=== PATIENT | male | born 1995 | race Caucasian/White ===

== ENCOUNTER 2025-05-20 11:12 | Emergency (ER) | payer OTHER, SELFPAY ==
--- NOTE | ~2025-05-20 | XR_ITS ---
CLINICAL HISTORY: pain 3 views lumbar spine Comparison: None provided Findings: Normal vertebral body alignment. No acute fractures or dislocation. Mild anterior wedging of L1 vertebral body. No significant degenerative change. IMPRESSION: 1. Mild anterior wedging of L1 vertebral body which is likely nonacute. Correlate clinically. This document has been electronically signed by: Shahla Kat MD on 05/20/2025 19:11:56
[2025-05-20 11:33] VITALS: BP 153/77; PULSE 81; RESP 20; TEMP 36.1; O2SAT 99; BMI 31.9
--- NOTE | 2025-05-20 11:34 | ED_ITS ---
HPI - General Adult General Chief complaint: Back Pain/Injury Stated complaint: Back pain Time Seen by Provider: 05/20/25 17:56 Source: patient, RN notes reviewed and old records reviewed Mode of arrival: ambulatory Limitations: no limitations History of Present Illness ED Provider: Martita SAMANIEGO narrative: 29 year old male with no significant past medical history presents for evaluation of lower back pain. the patient reports that he has chronic lower back pain that has intermittent. He reports that he works in the [employer] in his constantly lifting heavy items he reports about 2 years ago he started to notice numbness in his left leg while urinating this is not constant but rather intermittent. He reports this has been happening more frequently over last few months. This morning while urinating he noticed numbness in both legs which she thought was unusual he has no difficulty urinating and does not feel that he is retaining. He reports mild pain currently he denies any previous significant injury or recent injuries. He was seated for a long flight from [place] about 2 weeks ago. His pain does not radiate. He denies ever having had any imaging of his lumbar spine denies any fevers or chills, denies any history of IV drug abuse Related Data Previous Rx's ?Medication ?Instructions ?Recorded cyclobenzaprine 5 mg tablet 5 mg PO BEDTIME PRN muscle spasm 05/20/25 #20 tabs dexamethasone 4 mg tablet 4 mg PO BID #6 tabs 05/20/25 Allergies Allergy/AdvReac Type Severity Reaction Status Date / Time cefprozil Allergy Unknown Verified 05/20/25 11:38 Review of Systems 2 Constitutional: Constitutional: Denies body ache(s), Denies chills and Denies fever(s) Eyes: Eyes: Denies blurry vision ENT: Denies vertigo Cardiovascular: Cardiovascular: Denies chest pain Respiratory: Respiratory: Denies cough Gastrointestinal: Gastrointestinal: Denies abdominal pain Musculoskeletal: Musculoskeletal: Reports back pain, Denies arthralgias, Denies joint swelling, Denies limited range of motion, Reports numbness and Reports tingling Neurologic: Denies vertigo, Reports numbness, Reports tingling and Reports paresthesias Psychiatric: Psychiatric: Denies anxiety PMFSH Social History Social History Smoked in Last 30 Days: No Use of substances other than those prescribed or required for medical reasons: No Advance Directives: No Advance Directives Information Provided: No Do you have a plan to hurt others: No Plan Physical Exam ED Vital Signs: Vital Signs - 24 hr 05/20/25 11:33 05/20/25 18:55 Temperature 97.0 F 97.8 F Pulse Rate 81 66 Respiratory Rate 20 14 Blood Pressure 153/77 H 128/77 Pulse Oximetry 99 97 Oxygen Delivery Method Room Air Room Air BMI result Body Mass Index 31.9 Const General: healthy appearing, comfortable, no acute distress, alert and awake Nutritional Appearance: well nourished Orientation/consciousness: patient oriented x3 HENMT Head: Yes normocephalic and Yes atraumatic Eyes Eyelids: Yes eyelids normal Conjunctivae: conjunctivae normal Sclerae: sclerae normal Corneas: corneas normal Pupils: Equal, round and reactive pupils present EOM: EOMs intact bilaterally Neck Neck: Yes full ROM Resp Effort & Inspection: normal respiratory effort, able to speak in complete sentences and not labored Cardio Rate: regular rate Rhythm: regular rhythm GI Inspection: No distended Palpation (GI): Soft to palpation, not firm, nontender, no guarding and not rigid Back/Spine/Pelvis Other: no overlying skin changes to the back. mild tenderness to the lumbar paraspinous region. no step-offs or deformities Negative straight leg raise Skin General skin exam: elasticity normal Neuro General: patient oriented x3 Cranial nerves: Yes Equal, round and reactive pupils present and Yes Bilaterally intact EOM present Cognition (Neuro): normal cognition Gait exam (Neuro): Normal gait present Motor exam (neuro): 5/5 motor strength present throughout Deep tendon reflexes (DTR's): Right patellar reflex intensity grade: 2+ and Left patellar reflex intensity grade: 2+ Extrem Other: Moving all extremities well without any obvious deformities Course Course Course Narrative: This is a rapid medical exam performed by Erin Moralez NP: Additional HPI, ROS, PE not included below will be deferred to primary provider. Patient is a 29-year-old male presenting to the ED with complaint of low back pain. This am, when he was urinating, both legs went numb. States this only occurs with urination. Denies any prior back injury or surgery. Denies b/b incontinence. Denies saddle anesthesia. Denies fevers, hx of IVDU. Just returned from [place], had to keep getting up on the airplane due to back pain. States pain is usually to his left leg. Urinating more than normal. Plan: Labs, UA, imaging deferred to primary provider Medical Decision Making Medical Decision Making [facility] Narrative: 29-year-old male presents for evaluation of lower back pain. He reports some numbness to both legs only while urinating. He has no urinary retention or incontinence. Denies any shortness the lower extremities, his strength is 5/5 to all major muscle groups and equal. He has been infectious symptoms, no history of the drug abuse, I doubt diskitis or epidural abscess. The patient has a reassuring exam. He ambulates with a steady, even gait. I suspect he may have some disc herniation and radiculopathy but I have a low suspicion for cauda equina syndrome. He has no red flag signs on exam. Plan for lumbar x-ray as he has never had 1 in the past. He will likely require additional workup as an outpatient Differential Diagnosis Differential Diagnoses: The differential diagnosis associated with the presentation includes lumbar radiculopathy Disc herniation Chronic back pain Neuropathy Lab Data [facility] Lab Attestation statement: I reviewed the patient's lab results. no leukocytosis, anemia or thrombocytopenia. No electrolyte abnormalities. Inflammatory markers within normal limits 05/20/25 11:59 05/20/25 11:53 Labs: Lab Results 05/20/25 05/20/25 Range/Units 11:53 11:59 WBC 7.5 (4.8-10.8) X10*3/uL RBC 5.45 (4.60-5.80) X10*6/uL Hgb 17.4 (14.0-18.0) g/dl Hct 51.4 (42.0-52.0) % MCV 94.3 (80.0-98.0) fL MCH 31.9 (27.0-33.0) pg MCHC 33.9 (31.0-36.0) g/dl RDW 12.9 (11.0-16.0) % Plt Count 199 (160-400) X10*3/uL MPV 11.2 (9.4-12.4) fL Immature Gran % (Auto) 0.3 (0.0-0.4) % Neut % (Auto) 65.8 (45-73) % Lymph % (Auto) 22.6 (20-40) % [place] % (Auto) 10.1 (2-11) % Eos % (Auto) 0.8 (0-4) % Baso % (Auto) 0.4 (0-2) % Lymph # (Auto) 1.7 (1.2-4.9) X10*3/uL [place] # (Auto) 0.8 (0.1-1.2) X10*3/uL Eos # (Auto) 0.1 (0.0-0.4) X10*3/uL Baso # (Auto) 0.0 (0.0-0.2) X10*3/uL Abs Immat Gran (auto) 0.02 (0.00-0.03) X10*3/uL Absolute Neuts (auto) 4.9 (2.0-8.3) x10*3/uL Absolute Nucleated RBC 0.000 (0.0-0.012) X10*3/uL Nucleated RBC % (auto) 0.0 (0.0-0.2) /100WBC ESR 2 (0-15) MM/HR Sodium 141 (135-145) mmol/L Potassium 4.0 (3.3-5.1) mmol/L Chloride 105 (96-108) mmol/L Carbon Dioxide 28 (22-29) mmol/L Anion Gap 12 (12-20) BUN 9 (9-16) mg/dL Creatinine 0.87 (0.5-1.4) mg/dL Estim Creat Clear Calc 154.8 Estimated GFR > 60 Random Glucose 113 (60-115) mg/dL Calcium 11.0 H (8.4-10.2) mg/dL Total Bilirubin 0.6 (0.0-1.0) mg/dL AST 47 H (5-37) U/L ALT 97 H (0-40) U/L Alkaline Phosphatase 113 (39-117) U/L C-Reactive Protein 0.37 (< or = 0.50) mg/dL Total Protein 7.7 (6.5-8.0) g/dL Albumin 4.9 (3.5-5.0) g/dL Urine Color Yellow Urine Appearance Clear Urine pH 7.0 (5.0-9.0) Ur Specific [place] 1.020 (1.005-1.025) Urine Protein Negative (Neg-Trace) mg/dL Urine Glucose (UA) Negative (Negative) mg/dL Urine Ketones Negative (Negative) mg/dL Urine Blood Negative (Negative) Urine Nitrite Negative (Negative) Ur Leukocyte Esterase Negative (Negative) Independent Interpretation I performed an independent interpretation of an: Plain X-Ray Interpretation: mild straightening of the lumbar spine Radiology Impression Discussion of test interpretation with radiology: I have reviewed the radiologist's reading. Radiologist Impression: Findings: Normal vertebral body alignment. No acute fractures or dislocation. Mild anterior wedging of L1 vertebral body. No significant degenerative change. IMPRESSION: 1. Mild anterior wedging of L1 vertebral body which is likely nonacute. Correlate clinically. This document has been electronically signed by: Shahla Kat MD on 05/20/2025 19:11:56 Tests considered The following testing was considered but not selected: considered MR of the lumbar spine but ultimately felt that there was no indication as I have a low suspicion for emergent neurosurgical pathology. Prescription Management I considered prescription management with: Pain Medication Discharge Plan Discharge Clinical Impression: Lumbar radiculopathy Patient Disposition: Home, Self-Care Instructions: Lumbar Radiculopathy (ED) Additional Instructions: Your x-ray shows what appears to be a chronic compression fracture of L1 This is likely the cause of your pain and numbness. Take dexamethasone twice daily for the next 3 days. Take cyclobenzaprine as needed for muscle spasms. This may make you drowsy, do not drink alcohol or drive after taking it. In his best to use for bedtime You should avoid heavy lifting for the next 3 days. Follow up with her primary doctor. You may benefit from an outpatient MRI Prescriptions: New dexamethasone 4 mg tablet 4 mg PO BID Qty: 6 0RF cyclobenzaprine 5 mg tablet 5 mg PO BEDTIME PRN (Reason: muscle spasm) Qty: 20 0RF Referrals: [facility] [Provider Group, Physiatry] Referral Note: acute on chronic back pain Stand Alone Forms: Work/School Release Print Language: Armenian
[2025-05-20 12:05] LABS: MANUAL DIFF FLAG NO
[2025-05-20 12:11] LABS: Appearance Urine Clear; Glucose Urine UA Negative (Negative); Hematocrit 51.4 % (42.0-52.0); Hemoglobin 17.4 g/dl (14.0-18.0); Imm Gran Abs Auto 0.02 X10*3/uL (0.00-0.03); Imm Gran Pct Auto 0.3 % (0.0-0.4); Lymphocytes Absolute Auto 1.7 X10*3/uL (1.2-4.9); Mean Corpuscular HGB Conc 33.9 g/dl (31.0-36.0); Mean Corpuscular Hemoglobin 31.9 pg (27.0-33.0); Mean Corpuscular Volume 94.3 fL (80.0-98.0); NRBC Abs Auto 0.000 X10*3/uL (0.0-0.012); NRBC Pct Auto 0.0 /100WBC (0.0-0.2); PH 7.0 (5.0-9.0); Platelet Count 199 X10*3/uL (160-400); Red Blood Count 5.45 X10*6/uL (4.60-5.80); Specific Gravity - Urine 1.020 (1.005-1.025); White Blood Count 7.5 X10*3/uL (4.8-10.8)
[2025-05-20 12:20] LABS: Alanine Aminotransferase 97 U/L (0-40); Albumin Level 4.9 g/dL (3.5-5.0); Alkaline Phosphatase 113 U/L (39-117); Anion Gap 12 (12-20); Aspartate Amino Transferase 47 U/L (5-37); Blood Urea Nitrogen 9 mg/dL (9-16); Calcium 11.0 mg/dL (8.4-10.2); Carbon Dioxide 28 mmol/L (22-29); Chloride 105 mmol/L (96-108); Creatinine Clr Calc Pharmacy 154.8; Estimated Glomerular Filt Rate > 60; Potassium 4.0 mmol/L (3.3-5.1); Sodium 141 mmol/L (135-145); Total Protein 7.7 g/dL (6.5-8.0)
[2025-05-20 12:45] LABS: Erythrocyte Sedimentation Rate 2 MM/HR (0-15)
--- OUTSIDE RECORDS SUMMARY | 2025-05-20 17:58 | XMS_ITS | Data Portability ---
Author Organization [place] - [facility], auto[employer] Address [address] [place] [address] Assessment No assessment recorded. Plan of Treatment Reminders Order Date Submit Date Provider Last Modified By Organization Details Last Modified Time Details Appointments None recorded. Lab BMP, serum or plasma 2020 cfelician o9 Not available 13:24:11 lipid panel, serum 2020 cfelician o9 Not available 13:24:11 hepatic function panel, serum 2020 cfelician o9 Not available 13:24:12 thyroid panel, serum 2020 cfelician o9 Not available 13:24:12 CBC w/ auto diff 2020 cfelician o9 Not available 13:24:12 Referral None recorded. Procedures None recorded. Surgeries None recorded. Imaging electrocard iogram 2020 ROWENA Navarrete MD, [address] [place], [address], 08:56:15 US, echocardiog bakari, transthorac ic, complete, w/ color flow 2020 [email or web address] Not available 13:44:40 cardiac stress test - Plain exercise treadmill, without nuclear imaging or ECHO CPT: 28329 2020 heather Navarrete MD, [address], [place], [address], 12:15:57 Medication Orders None recorded. Patient TargetsNo targets recorded. Patient Instructions Encounter Date Encounter Id Patient Instructions Last Modified By Organization Details Last Modified Time 04/14/2021 [id number] electrocardiogra ma de esfuerzo: acerca de esta prueba - [exercise electrocardiogram: about this test] Not available 04/14/2021 13:32:08 exercise electrocardiogram: about this test Not available 04/14/2021 13:32:09 1. Diagnosis, te sting, medicines, details of the conditions & the follow up plans were reviewed with the patient. 2. Healthy lifestyle, including regular exercise and weight management. 3. Patient to report any new or worsening symptoms. (Discussed in detail with the patient); All of the patients questions were answered. Any urgent issues, patient is advised to go to an Emergency Room. 4. Follow-up 2-3 weeks/Soon after the tests are completed. or sooner as clinically indicated. Discussed with the patient. 5. On behalf of [facility], Thank you for letting us be a part of this patients care. Not available 04/14/2021 13:32:12 Reason for Referral None Reported. Results Created Date Observation Date Name Description Value Unit Range Abnormal Flag Note LastModifiedBy Organization Detail LastModifiedTime 04/14/2004/14/2021 elect rocar diogr am No observ ation record ed. [email or web address] Regan Navarrete MD [address], [place], [address], 04/15/2021 08:56:15 04/14/20 elect rocar diogr am No observ ation record ed. [email or web address] Not Available 04/14 13:27:49 04/14/20 elect rocar diogr am No observ ation record ed. [email or web address] Not Available 2020 13:48:00 Result Notes None recorded. Problems Name Problem SNOMED Code Status Onset Date Resolution Date Notes Provider Name and Address Organization Details Recorded Time Chest pain 02291286 Active 2020 Regan Navarrete MD [address], [place], [address] , [facility] 13:27:58 Dyspnea 188050185 Active 2020 MD Favio Villafana, [place], [address] , [facility] 13:28:13 Choleste rol screenin g Active 2020 MD Favio Villafana, [place], [address] , [facility] 13:28:19 Tobacco user 405975561 Active 2020 Chews tobacco MD Favio Villafana, [place], [place], [address] [place] [address] , [facility] 13:28:28 Family history of disorder 656876330 Active 2020 No premature coronary artery disease affecting the first-deg ree relatives . Regan Navarrete MD [address], [place], [place], [address] [place] [address] , [facility] 13:28:49 Problem Notes None recorded. Procedures Surgical History Date Name Laterality Status Provider Name and Address Organization Details Recorded Time 04/30/20 21 Plain Treadmill Stress Test cancelled nikolas smith [facility] 04/19/2021 09:01:06 Appendectomy completed nikolas smith [facility] 04/14/2021 12:50:52 Imaging Results None recorded. Procedure Notes None recorded. Medical Equipment None Reported. Allergies Allergen ID Allergen Name Allergen Category Reaction Reaction Severity Criticality Documentation Date Start Date Code Code System Note Provider Name and Address Organization Details Recorded Time 6048 Cefzil medicatio n Not available Not available Not available 04/14/2021 13625 1 RxNorm nikolas smith [facility], [place] - [facility] 12:51:48 Medications Name Sig Start Date Stop Date Status Note LastModified by Organization Details LastModified Time Advil PRN active Not Available Not Availa ble Not Available Vitals Date Recorded Body height Body mass index (BMI) Body weight Heart rate Oxygen saturation Oxygen saturation in Arterial blood by Pulse oximetry Systolic And Diastolic Provider Name and Address Organization Details Last Updated DateTime 1 180.34 cm 30.5 kg/m2 71037.2 9 g 72 /min 98 % 98 % 138/90 mm[Hg] nikolas smith [place] - [facility] 12:50:31 Social History Question Answer Notes LastModified by Organizat ion Details LastModified Time Tobacco Smoking Status Never Smoker nikolas smith null, [place] - [facility] 04/14/2021 12:50:52 Are You Blind Or Do You Have Difficulty Seeing? No [email or web address] Information not available 04/14/2021 What Is Your Level Of Caffeine Consumption? Occasional [email or web address] Information not available 04/14/2021 In The 14 Days Before Symptom Onset, Have You Had Close Contact With A Laboratory-confir med COVID-19 While That Case Was Ill? No [email or web address] Information not available 04/14/2021 In The 14 Days Before Symptom Onset, Have You Had Close Contact With A Person Who Is Under Investigation For COVID-19 While That Person Was Ill? No Information not available 04/14/2021 Have You Been To An Area Known To Be High Risk For COVID-19? No [email or web address] Information not available 04/14/2021 Are You Deaf Or Do You Have Serious Difficulty Hearing? No [email or web address] Information not available 04/14/2021 What Type Of Diet Are You Following? REGULAR [email or web address] Information not available 04/14/2021 Have You Processed Blood Or Body Fluids From An Ebola Virus Disease Patient Without Appropriate PPE? No [email or web address] Information not available 04/14/2021 Do You Reside In Or Have You Traveled To An Area Where Ebola Virus Transmission Is Active? No [email or web address] Information not available 04/14/2021 What Is The Highest Grade Or Level Of School You Have Completed Or The Highest Degree You Have Received? BG18599-1 [email or web address] Information not available 04/14/2021 How Many Days Of Moderate To Strenuous Exercise, Like A Brisk Walk, Did You Do In The Last 7 Days? 4 [email or web address] Information not available 04/14/2021 On Those Days That You Engage In Moderate To Strenuous Exercise, How Many Minutes, On Average, Do You Exercise? 35 [email or web address] Information not available 04/14/2021 What Is Your Relationship Status? Single [email or web address] Information not available 04/14/2021 Do You Use Your Seat Belt Or Car Seat Routinely? Yes [email or web address] Information not available 04/14/2021 Do You Have Difficulty Walking Or Climbing Stairs? No Information not available 04/14/2021 Sex: Unknown Functional Status Question Answer Note LastModified by [employer] Details LastModified Time Do you use any illicit or recreational drugs? No Information not available 04/14/2021 Do you or have you ever used any other forms of tobacco or nicotine? Yes [email or web address] Information not available 04/14/2021 What is your level of alcohol consumption? Occasional [email or web address] Information not available 04/14/2021 Do you or have you ever used smokeless tobacco? Currently chews tobacco [email or web address] Information not available 04/14/2021 Do you have difficulty doing errands alone? No [email or web address] Information not available 04/14/2021 Do you have difficulty dressing, bathing, grooming, or toileting? No [email or web address] Information not available 04/14/2021 Do you or have you ever used e-cigarettes or vape? Never used electronic cigarettes Information not available 04/14/2021 What is your exercise level? Moderate [email or web address] Information not available 04/14/2021 Mental Status Question Answer Note LastModified by [employer] Details LastModified Time Do you feel stressed (tense, restless, nervous, or anxious, or unable to sleep at night)? [id number] [email or web address] Information not available 04/14/2021 Do you have difficulty concentrating, remembering or making decisions? No [email or web address] Information no t available 04/14/2021 Family History Relationship Description Onset Age of this Age Resolved Age Notes LastModified by Organization Details LastModified Time Maternal Grandfather Heart disease [email or web address] Not available 2020 12:50:51 Medical History No medical history recorded. Immunizations Vaccine Type Date Status Note Provider Nam e and Address Organization Details Recorded Time COVID-19 Non-[place] Vaccine, UNSPECIFIED completed nikolas smith null, [place] - [facility] 04/14/2021 12:52:23 Past Encounters Encounter ID Performer Location Encounter Start Date Encounter Closed Date Diagnosis/Indication Diagnosis SNOMED-CT Code Diagnosis ICD10 Code Diagnosis IMO Codes Diagnosis Note [id number] Regan Navarrete MD [facility] [address], [place] [address] 04/14/2021 12:40:46 04/14/2021 13:41:03 Chest pain 84009339 R07.9 Tobacco user 171272894 Z 72.0 Counseled on cessation; patient is aware of benefits of stopping tobacco a Cholesterol screening 27 4744007 Z13.220 Dyspnea 638350698 R06.00 Health Concerns Section Related Observation LastModified by Organization Detai ls LastModified Time None Recorded Concern Status LastModified by Organization Details LastModified Time None Recorded Advance Directives Directive None Recorded Payers Insurance Date Sequence Insurance Name Policy Number Policy Cain Covered Member ID Cain Member ID Guarantor Name 04/12/2021 1 FOR LIFE ( - MEDICARE SUPPLEMENT) Hawk Benjamin [id number] Hawk Benjamin 04/12/2021 1 [facility] () Hawk Benjamin [id number] Hawk Benjamin 05/29/2021 1 [facility] () Hawk Benjamin [id number] Hawk Benjamin Notes Date Note Type Note Provider Name and Address Organization Details Recorded Time 04/14/2021 text/html Chief Complaint Chief Complaint Chest pain HPI: 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 Radiates within the chest. Reports shortness of breath with exertion. This occurred when he went for a run. He went to urgent care clinic and EKG was found to be borderline abnormal. Pulmonary embolism was suspected incentive [facility] ER. Patient reports [facility] ER evaluation-blood test was negative for blood clot. No further imaging was performed and cardiology evaluation was recommended. Patient Chews tobacco , not a smoker. Patient has recurrent chest pain including last episode being this morning. EKG today sinus rhythm, nonspecific ST, T-wave abnormality in inferior leads, no serial changes. Cardiac Problems Cardiomegaly (Enlarged Heart) - No Heart Disease you were down with (congenital) - No Rheumatic Fever - No Murmur - No Abnormal Heart Valve - No Endocarditis (infected health valve) - No Abnormal ECG - Yes Angina (heart pain) - No Heart Attack - No Coronary Artery Disease - No Heart Failure/Cardiomyo gretchen - No Arrhythmia/Abnorm al Rhythm - No Previous Cardiac Arrest - No Defibrillated/[place] cked - No Pericardial (sac surrounding heart) Disease - No Marfan's Syndrome - No Hospitalized for Cardiac Reasons - No Other type of heart disease - No Abnormal ECG - Year March 2021 Vascular Problems Vascular Problems Cartoid Artery Disease - No Renal (kidney) Artery Disease - No Peripheral (leg or arm) Artery Disease - No Pulmonary Embolism (clots in lung) - No Varicose Veins - No Stroke or TIA (mini stroke) - No Any History of Aneurysm - No DVT (clots in leg) - No Other Type of Vascular Disease - No Family Cardiac History Family Members with Heart Problems [facility] Regan Navarrete MD [address] [facility], [place], [address], [place] - [facility] 04/14/2021 13:35:58
[2025-05-20 18:55] VITALS: BP 128/77; PULSE 66; RESP 14; TEMP 36.6; O2SAT 97
--- NOTE | 2025-05-20 19:39 | PC.NURSE ---
reviewed discharge instructions with pt. pt verbalized understanding, no sign of distress upon discharge, notified Primary nurse Hope.
[2025-05-20 19:40] VITALS: BP 128/77; PULSE 66; RESP 14; TEMP 36.6; O2SAT 97
== END 2025-05-20 19:41 | disposition home or self-care (01) ==
PROVIDERS: Registered Nurse Emergency; Emergency Provider Emergency Medicine
DX: M54.16 Radiculopathy, lumbar region (principal)
CPT/HCPCS: 36415; 72100; 80053; 81003; 85025; 85652; 86140; 99283; 99284

== ENCOUNTER → 2025-05-20 18:19 | Outpatient (BNV) | payer OTHER, SELFPAY | PROVIDERS: Emergency Provider Emergency Medicine; Visit Provider Specialist | DX: M54.50 Low back pain, unspecified (principal) | CPT/HCPCS: 72100 ==